=== PATIENT | female | born 1970 ===

== ENCOUNTER 2023-12-29 04:54 | Outpatient (CLI) | payer BC, SELFPAY ==
[2023-12-29 12:25] LABS: Abs Immature Grans 0.01 10^3/uL (0.0-0.06); Absolute Basophil Count 0.04 10^3/uL (0.0-0.2); Absolute Eosinophil Count 0.14 10^3/uL (0.0-0.7); Absolute Monocyte Count 0.25 10^3/uL (0.1-0.8); Absolute Neutrophil Count 2.94 10^3/uL (1.2-6.7); Basophils % 0.9; Eosinophils % 3.1; HCT 40.4 % (36.0-46.0); HGB 13.4 g/dL (11.2-15.7); Immature Grans % 0.2; Lymphocytes % 26.2; MCH 30.1 pg (27.0-33.0); MCHC 33.2 % (32.0-36.0); MCV 91 fL (80-95); MPV 9.2 fL (8.0-11.0); Monocytes % 5.5; Neutrophils % 64.1; Platelet Count 154 10^3/uL (130-400); RBC 4.45 10^6/uL (3.93-5.22); RDW 12.1 % (11.7-14.6); RDW-SD 40.6 fL; WBC 4.58 10^3/uL (4.4-10.8)
[2023-12-29 12:26] LABS: ESR 2 mm/hr (0-30)
[2023-12-29 13:30] LABS: ALT 17 U/L (14-59); AST 18 U/L (15-37); Albumin 4.1 g/dL (3.4-5.0); Alkaline Phosphatase 49 U/L (46-116); Anion Gap 6.7 mmol/L (3-11); BUN 17 mg/dL (7-18); Bilirubin, Total 0.5 mg/dL (0.2-1.0); CO2 31.3 mmol/L (21.0-32.0); CREATININE 0.8 mg/dL (0.55-1.02); Calcium 9.1 mg/dL (8.5-10.1); Calculated LDL 105 mg/dL (<100); Chloride 102 mmol/L (98-107); Cholesterol 196 mg/dL (<200); Ferritin 141 ng/mL (8-252); Folate 12.8 ng/mL (8.6-20.0); Glucose 97 mg/dL (74-106); HDL Cholesterol 81 mg/dL (40-60); Magnesium 1.5 mg/dL (1.8-2.4); Potassium 3.5 mmol/L (3.5-5.1); Sodium 140 mmol/L (136-145); Total Protein 7.6 g/dL (6.4-8.2); Triglyceride 53 mg/dL (<150); Vitamin B12 779 pg/mL (193-986)
[2023-12-29 13:44] LABS: Amylase 77 U/L (25-115); Lipase 81 U/L (16-77)
[2023-12-29 14:03] LABS: Iron 85 ug/dL (50-170); Total Iron Binding Capacity 250 ug/dL (250-450); Transferrin Sat 34 % (15-50)
[2023-12-29 14:18] LABS: Vitamin D 25 Total 36.4 ng/mL (30-100)
[2023-12-29 22:01] LABS: CRP, High Sensitivity 0.35 mg/L (See Note)
[2023-12-29 22:09] LABS: Homocysteine 8.8 umol/L (5.0-13.9)
[2023-12-31 10:24] LABS: Lipoprotein (a) 8 nmol/L (<75)
[2024-01-01 09:26] LABS: Apolipoprotein A1, S 168 mg/dL (>=140); Apolipoprotein B, S 73 mg/dL (See Comment); Apolipoprotein B/A 1 ratio 0.4 (See Comment)
[2024-01-05 00:42] LABS: Pyridoxal 5-Phosphate (PLP), P 11 mcg/L (5-50)
== END 2023-12-29 04:55 | disposition home or self-care (01) ==
PROVIDERS: PCP Naturopath; Visit Provider Naturopath
DX: Q61.2 Polycystic kidney, adult type (principal); Z82.49 Family history of ischemic heart disease and other diseases of the circulatory system; R58 Hemorrhage, not elsewhere classified; R20.0 Anesthesia of skin; R10.9 Unspecified abdominal pain; Z87.442 Personal history of urinary calculi
CPT/HCPCS: 36415; 80053; 80061; 82172; 82306; 83090; 83690; 83695; 85652; 86141; 82150; 82607; 82728; 82746; 83540; 83550; 83735; 84207; 85025

== ENCOUNTER → 2024-02-01 04:27 | Outpatient (CLI) | payer BC, SELFPAY ==
--- NOTE | 2024-02-01 | DI.MAMMO_ITS ---
Exam(s) MG MAMMO SCREENING 60 MIN DUR EXAM: MG MAMMO SCREENING 60 MIN DUR CLINICAL HISTORY: SCREENING MAMMO FOR BREAST CANCER Z12.39 TECHNIQUE: Bilateral full field digital CC and MLO mammographic images were obtained with 3D tomosyn thesis and utilizing computer aided detection (CAD). COMPARISON: There are no priors available for comparison. FINDINGS: Masses/Architectural Distortion: The patient has bilateral breast implants which appear unremarkable. No suspicious masses or areas of architectural distortion are seen. Microcalcifications: No suspicious pleomorphic-type are seen. Skin Thickening/Nipple Retraction: None. IMPRESSION: 1. No evidence for malignancy is seen at this time. 2. Unless there is more urgent need, screening mammography is recommended, as per [employer] guidelines. BI-RADS Category 1 - Negative Breast Density - Category D - Extremely dense Breast density category C or D implies that the patient has dense breast tissue. Dense breast tissue is very common and is not abnormal but dense breast tissue can make it harder to find cancer on a ma mmogram. Also, dense breast tissue may increase their breast cancer risk. This information about the result of the mammogram report was provided to the patient to raise their awareness. Use this report when you speak with the patient about their risks for breast cancer, which includes their family hist ory. At that time, you may recommend for more screening tests (Ultrasound or MRI) as they might be us eful based on their risk. A negative radiographic report should not delay biopsy if a dominant or clinically suspicious mass is present. Up to ten percent of cancers are not identified on mammography. A negative report may reinforce clinical impression. Adenosis and dense breasts may obscure an underlying neoplasm. False positive reports average 6 to 10%. Patient will receive a letter notifying them of these results.
== END ==
PROVIDERS: PCP Naturopath; Visit Provider Naturopath
DX: Z12.31 Encounter for screening mammogram for malignant neoplasm of breast (principal)
CPT/HCPCS: 77063; 77067